=== PATIENT | male | born 2000 | race Two or more races ===

== ENCOUNTER 2025-09-03 17:56 | Emergency (ER) | payer OTHER ==
[2025-09-03 17:58] VITALS: TEMP 96.3
--- NOTE | 2025-09-03 18:10 | ECG ---
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
[2025-09-03 18:55] LABS: Hematocrit 46.7 % (41.0-53.0); Hemoglobin 16.1 g/dL (13.5-17.5); Mean Corpuscular Hemoglobin 30.7 pg (28.0-32.0); Mean Corpuscular Volume 89.0 fL (80.0-100.0); Nucleated Red Blood Cells % 0.3 %
[2025-09-03 19:11] LABS: Alanine Aminotransferase 33 U/L (7-40); Alkaline Phosphatase 78 U/L (46-116); Anion Gap 13 (5-15); BUN/Creatinine Ratio 7.9 (10.0-20.0); Calcium 9.7 mg/dL (8.7-10.4); Carbon Dioxide 22 mmol/L (20-31); Chloride 99 mmol/L (98-107); Glucose 105 mg/dL (74-106); Magnesium 1.8 mg/dL (1.6-2.6)
[2025-09-03 19:12] LABS: Bilirubin, Total 0.4 mg/dL (0.2-1.0)
[2025-09-03 19:13] LABS: Albumin 5.0 g/dL (3.2-4.8); Blood Urea Nitrogen 7 mg/dL (9-23); Potassium 2.9 mmol/L (3.5-5.1); Sodium 134 mmol/L (136-145); Total Protein 8.9 g/dL (5.7-8.2)
--- NOTE | 2025-09-03 20:09 | ED.PDOC ---
History of Present Illness HPI Comments 25 y/o M presents with c/c of palpitations. Patient endorses on sudden and unprovoked onset of palpitations, while driving home from work x30 minutes ago Associated chest wall discomfort, shortness of breath, throat tightness, and drowsiness. He reports only drinking a cup of coffee with creamer without drin pat sufficient amount of water all day, today. Denial of any pertinent medical history. Denial of any nausea, vomiting, dizziness, fever, or further acute symptoms. Chief Complaint: Palpitations Time Seen by MD: 18:20 Reviewed Notes: Nurses Notes, Medications, Allergies Allergies: Coded Allergies: NO KNOWN ALLERGIES (Unverified , 09/03/25) Home Meds Active Scripts Potassium Chloride (Potassium Chloride ER) 10 Meq Tab, 10 MEQ PO BID for 20 Days, #40 TAB Prov:GREGORIA MAST MD 09/03/25 Information Source: Patient Mode of Arrival: Ambulatory Severity: Moderate Timing: Hours Duration: Since onset Prehospital treatment: None Past Medical History PAST MEDICAL HISTORY: Denies Surgical History: Denies all surgeries Family History Family History: Unknown Social History Smoker: Non-Smoker Alcohol: Denies ETOH Use Drugs: Denies Drug Use Lives In: Home All Other Systems: Reviewed and Negative (As per HPI) Physical Exam General Appearance: Mild Distress, Normal HEENT: Normal ENT Inspection, Pharynx Normal, TMs Normal Neck: Full Range of Motion, Non-Tender, Normal, Normal Inspection Respiratory: Chest Non-Tender, Lungs Clear, No Accessory Muscle Use, No Respiratory Distress, Normal Breath Sounds Cardiovascular: No Edema, No JVD, No Murmur, No Gallop, Normal Peripheral Pulses, Regular Rate/Rhythm Breast Exam: Deferred Gastrointestinal: No Organomegaly, Non Tender, No Pulsatile Mass, Normal Bowel Sounds, Soft Genitalia: Deferred Pelvic: Deferred Rectal: Deferred Extremities: No calf tenderness, Normal capillary refill, Normal inspection, Normal range of motion, Non-tender, No pedal edema Musculoskeletal : Apperance: Normal 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 Was a procedure done?: No EKG EKG : Pulse Rate (adult): 92 [place]: Normal Cardiac Rhythm: NSR Block: None Hypertrophy: None ST: Normal Differential Dx Considerations may include: dehydration, electrolyte imbalance, arrhythmia, among others X-Ray, Labs, Meds, VS Vital Signs Date Time Temp Pulse Resp B/P (MAP) Pulse Ox O2 Delivery O2 Flow Rate FiO2 09/03/25 21:54 92 20 122/82 (95) 100 09/03/25 20:09 92 09/03/25 18:07 92 09/03/25 17:58 96.3 83 18 158/98 100 96.3 Lab Test 09/03/25 18:35 Range/Units White Blood Count 8.5 4.4-10.8 10^3/uL Red Blood Count 5.25 4.5-5.90 10^6/uL Hemoglobin 16.1 13.5-17.5 g/dL Hematocrit 46.7 41.0-53.0 % Mean Corpuscular Volume 89.0 80.0-100.0 fL Mean Corpuscular Hemoglobin 30.7 28.0-32.0 pg Mean Corpuscular Hemoglobin Concent 34.5 32.0-36.0 g/dL Red Cell Distribution Width 12.9 11.8-14.3 % Platelet Count 295 140-450 10^3/uL Mean Platelet Volume 8.0 6.9-10.8 fL Neutrophils (%) (Auto) 62.4 37.0-80.0 % Lymphocytes (%) (Auto) 30.3 10.0-50.0 % Monocytes (%) (Auto) 5.2 0.0-12.0 % Eosinophils (%) (Auto) 1.6 0.0-7.0 % Basophils (%) (Auto) 0.5 0.0-2.0 % Neutrophils # (Auto) 5.3 1.6-8.6 10 ^3/uL Lymphocytes # (Auto) 2.6 0.4-5.4 10 ^3/uL Monocytes # (Auto) 0.4 0-1.3 10 ^3/uL Eosinophils # (Auto) 0.1 0-0.8 10 ^3/uL Basophils # (Auto) 0 0-0.2 10 ^3/uL Nucleated Red Blood Cells 0.3 % Sodium Level 134 L 136-145 mmol/L Potassium Level 2.9 L 3.5-5.1 mmol/L Chloride Level 99 98-107 mmol/L Carbon Dioxide Level 22 20-31 mmol/L Anion Gap 13 5-15 Blood Urea Nitrogen 7 L 9-23 mg/dL Creatinine 0.89 0.700-1.30 mg/dL Glomerular Filtration Rate Calc 123 >90 mL/min BUN/Creatinine Ratio 7.9 L 10.0-20.0 Serum Glucose 105 74-106 mg/dL Calcium Level 9.7 8.7-10.4 mg/dL Magnesium Level 1.8 1.6-2.6 mg/dL Total Bilirubin 0.4 0.2-1.0 mg/dL Aspartate Amino Transferase (AST) 30 13-40 U/L Alanine Aminotransferase (ALT) 33 7-40 U/L Alkaline Phosphatase 78 46-116 U/L Troponin I High Sensitivity < 3 L </=54 ng/L Total Protein 8.9 H 5.7-8.2 g/dL Albumin 5.0 H 3.2-4.8 g/dL Thyroid Stimulating Hormone (TSH) 2.48 0.55-4.78 uIU/mL Current Medications Medications (Trade) Dose Ordered Sig/Margo Route Start Time Stop Time Status Last Admin Potassium Chloride (Klor-Con Tablet) 20 meq ONCE ONCE PO 09/03/25 20:15 09/03/25 20:16 DC 09/03/25 20:15 Time of 1ST Reevaluation: 18:50 Reevaluation 1ST: Unchanged Patient Education/Counseling: Diagnosis, Treatment, Need For Follow Up Family Education/Counseling: No Family Present SEPSIS Sepsis Screen Date sepsis recognized/suspect: Sep 03, 2025 Time Sepsis recognized/suspect: 1800 Recent Procedure: No On Antibiotic Therapy: No Respiratory Rate >20: No Heart Rate >90: Yes Temp<36 C (96.8 F) or >38.3 C: No SBP <90 or MAP <65 mmHG: No New Acute Mental Status Change: No Is the patient on CPAP, BIPAP,: No Physician Orders Drug Screen (09/03/25 18:23) Vital Signs Date Time Temp Pulse Resp B/P (MAP) Pulse Ox O2 Delivery O2 Flow Rate FiO2 09/03/25 21:54 92 20 122/82 (95) 100 09/03/25 20:09 92 09/03/25 18:07 92 09/03/25 17:58 96.3 83 18 158/98 100 96.3 Laboratory Tests Test 09/03/25 18:35 White Blood Count 8.5 10^3/uL (4.4-10.8) Medications Medications Dose Ordered Sig/Margo Route Start Time Stop Time Status Last Admin Dose Admin Potassium Chloride 20 meq ONCE ONCE PO 09/03/25 20:15 09/03/25 20:16 DC 09/03/25 20:15 Departure 1 Departure Time of Disposition: 21:00 Impression: Primary Impression: Hypokalemia Additional Impression: Near syncope Disposition: HOME / SELF CARE / HOMELESS Condition: Stable e-Prescriptions Potassium Chloride (Potassium Chloride ER) 10 Meq Tab 10 MEQ PO BID for 20 Days, #40 TAB Prov: GREGORIA MAST MD 09/03/25 Discharged With: Self Critical Care Note Critical Care Time?: No Stability Stability form required: No Heart Score Heart Score: Heart Score Response (Comments) Value History N/A 0 EKG N/A 0 Age N/A 0 Risk Factors N/A 0 Troponin N/A 0 Total 0 I personally scribed for GREGORIA MAST MD ([email or web address]) on 09/03/25 at 20:09. Electronically submitted by Terry Paul [email or web address]). GREGORIA MAST MD Sep 03, 2025 20:09
[2025-09-03] MEDS ORDERED: POTA-228 PO (20:12)
[2025-09-03] MEDS: POTASSIUM CHL 20 Meq TABLET PO ONE (20:15)
[2025-09-03 21:54] VITALS: BP 122/82; PULSE 92; RESP 20; O2SAT 100
== END 2025-09-03 22:28 | disposition home or self-care (01) ==
LOC: ER 17:56
DX: E87.6 Hypokalemia (principal); R55 Syncope and collapse; R06.02 Shortness of breath; Z79.899 Other long term (current) drug therapy
CPT/HCPCS: 36415; 80053; 83735; 84443; 84484; 85025; 93005